=== PATIENT | male | born 1935 | race Caucasian/White ===

== ENCOUNTER 2019-09-15 10:26 | Inpatient (IN) | payer MEDICARE ==
[~2019-09-15] VITALS: Ht 172.7 cm; Wt 96.6 kg
--- NOTE | 2019-09-15 10:35 | NUR ---
PATIENT WAS MSE BY FAITH IN ROOM 05A. PATIENT A & O X3.
--- NOTE | 2019-09-15 10:42 | NUR ---
PATIENT IS MEDICALLY CLEARED BY DR CUEVAS.
--- NOTE | 2019-09-15 11:04 | NUR ---
MED LIST PROVIDED BY PT.
--- NOTE | 2019-09-15 11:05 | NUR ---
SPOKE WITH PATIENT DAUGHTER KESHIA.
--- NOTE | 2019-09-15 11:20 | NUR ---
PT DAUGHTER EMIL CALLED AND PROVIDED PT PMD INFO: DR. CINDY HAYNES,
--- NOTE | 2019-09-15 12:15 | NUR ---
Patient is resting comfortably in bed with eyes closed
--- NOTE | 2019-09-15 13:30 | NUR ---
Pt. admitted to [facility] , under care of Dr. CUNNINGHAM Belongs List completed
[2019-09-15 13:45] VITALS: BP 108/81
--- NOTE | 2019-09-15 13:45 | NUR ---
RECEIVED PT. RESTING IN BED ALERT ORIENTED X4. PT. DENIES PAIN/ DISCOMFORT. PT DENIES SOB/ DIFFICULTY BREATHING. PT. HAS 1-1 SITTER FOR SAFETY 5150 DTS. PT. DENIES SI/ HI. PT. CALM AND COOPERATIVE. SAFETY MEASURES IN PLACE. WILL CONTINUE TO MONITOR.
[2019-09-15] MEDS ORDERED: ZOLPIDEM 5 MG TABLET PO PRN (14:00)
[2019-09-15] MEDS ORDERED: LORAZEPAM 1 MG TABLET PO PRN (14:00)
--- NOTE | 2019-09-15 15:44 | NUR ---
Social Work Note Patient was admitted to the overflow GPS unit today after transfer from [facility]. This social media marketing analyst met with patient and gave him written advisement of his hold for danger to self. His hold will on 09/16/19 at 2015. Patient is alert and oriented x4. He says he lives with his but is uncertain if he wants to return there once he is stable. He overdosed on Venlafaxine and Oxycontin and stated he was tired of listening to his complaining. Patient is currently cooperative and has [id number] for safety. Dr Covarrubias is aware of patient's arrival and will come and see patient tomorrow.
--- NOTE | 2019-09-15 17:49 | NUR ---
PT. STATES HE WANTS TO BE DNR. DR. JIMENES AWARE. CODE STATUS ORDERED
--- NOTE | 2019-09-15 20:00 | NUR ---
Patient received into care, laying in bed, resting comfortably, with 1:1 sitter at bedside. Patient has no complaints of pain/discomfort at this time. All safety and fall precaution measures are in place. Personal items are within reach at all times. Will continue to monitor and assess.
--- NOTE | 2019-09-16 06:30 | NUR ---
Patient slept throughout night with 1:1 sitter at bedside. Patient had no complaints of pain or discomfort and all nursing needs were met promptly, with patient warm, dry and comfortable. All safety and fall precaution measures are in place.
[2019-09-16] MEDS: MULTIVITAMINS,THERAPEUTIC TABLET PO SCH (08:09)
[2019-09-16] MEDS: ASCORBIC ACID 500 MG TABLET PO SCH (08:09)
[2019-09-16 08:33] VITALS: BP 109/81
[2019-09-16] MEDS ORDERED: Medication Not On Formulary EA (Ascorbic Acid (Vitamin C) 500 MG) PO SCH (09:00)
[2019-09-16] MEDS ORDERED: Medication Not On Formulary EA (Multivitamins (Multivitamin) 1 EACH) PO SCH (09:00)
[2019-09-16] MEDS: VENLAFAXINE XR 75 MG TAB.ER.24H PO SCH (09:59)
--- NOTE | 2019-09-16 11:48 | NUR ---
11:30am: This SW attempted to see this patient to complete the psychosocial assessment, but patient was asleep in bed, unable to arouse. Will attempt to complete assessment later today.
[2019-09-16 15:06] VITALS: BP 106/79
--- NOTE | 2019-09-16 15:34 | NUR ---
2:15pm: SW met with the patient and completed the patient's psychosocial assessment.
[2019-09-16 19:37] VITALS: BP 148/82
[2019-09-16] MEDS: QUETIAPINE FUMARATE 25 MG TABLET PO SCH (21:02)
[2019-09-17 04:11] VITALS: BP 119/92
[2019-09-17 06:45] LABS: BASOPHILS % (AUTO) 0.5 % (0.0-2.0); EOSINOPHILS # (AUTO) 0.3 K/uL (0.0-0.7); EOSINOPHILS % (AUTO) 3.6 % (0.0-7.0); HEMATOCRIT 42.3 % (36.7-47.1); HEMOGLOBIN 14.4 g/dL (12.5-16.3); LYMPHOCYTES # (AUTO) 1.6 K/uL (20.0-40.0); LYMPHOCYTES % (AUTO) 18.9 % (20.5-51.5); MEAN CORPUSCULAR HEMOGLOBIN 31.6 uug (23.8-33.4); MEAN CORPUSCULAR HGB CONC 34 g/dL (32.5-36.3); MEAN CORPUSCULAR VOLUME 93.2 fL (73.0-96.2); MONOCYTES # (AUTO) 0.7 K/uL (2.0-10.0); MONOCYTES % (AUTO) 8.4 % (0.0-11.0); NEUTROPHILS # (AUTO) 5.8 K/uL (1.8-8.9); NEUTROPHILS % (AUTO) 68.6 % (38.5-71.5); PLATELET COUNT (AUTO) 231 K/uL (152-348); RED BLOOD CELL COUNT(AUTO) 4.54 MIL/uL (4.06-5.63); WHITE BLOOD COUNT (AUTO) 8.5 K/uL (3.6-10.2)
[2019-09-17 06:54] LABS: THYROID STIMULATING HORMONE 1.892 mIU/mL (0.358-3.740)
[2019-09-17 07:22] LABS: BILIRUBIN,TOTAL 0.4 mg/dL (0.2-1.0); CREATININE 0.9 mg/dL (0.6-1.3); MAGNESIUM 2.1 mg/dL (1.8-2.4); PHOSPHOROUS 3.1 mg/dL (2.5-4.9); TOTAL PROTEIN, SERUM 6.5 g/dL (6.4-8.2)
[2019-09-17] MEDS: MULTIVITAMINS,THERAPEUTIC TABLET PO SCH (08:08)
[2019-09-17] MEDS: VENLAFAXINE XR 75 MG TAB.ER.24H PO SCH (08:08)
[2019-09-17] MEDS: ASCORBIC ACID 500 MG TABLET PO SCH (08:08)
--- NOTE | 2019-09-17 11:28 | NUR ---
Received patient this am. Awake, alert and oriented. Patient denies SI at this time , but states " I have been thinking about it for awhile, like a few months. " Patient denies being depressed but states " I am just tired of my ". No behavioral issues or acute distress noted. Monitoring closely for SI and safety. Sitter at bedside . Ambulated patient around the unit. Gait steady. Encouraging patient to have meaningful conversations at this time.
[2019-09-17 16:10] VITALS: BP 146/98
[2019-09-17] MEDS ORDERED: ACETAMINOPHEN 325 MG TABLET PO PRN (20:00)
[2019-09-17] MEDS: QUETIAPINE FUMARATE 25 MG TABLET PO SCH (20:18)
[2019-09-17 20:30] VITALS: BP 139/86
--- NOTE | 2019-09-18 07:01 | NUR ---
Received Pt sitting up in bed awake with 1:1 sitter present. A+Ox3, Pt guarded on approach. Pt gives limited disclosure and minimizes the events surrounding the reason for admission, states it "is just a big misunderstanding." Pt denies any current thoughts of SI and verbally contracts for safety. Compliant with HS medications, cooperative with staff direction. Exhibits flat affect and poor eye contact. Denies pain, temp elevated at 99.8, Tylenol 650mg administered with good effect, re check was 98.4, all other VS stable. Slept 8 hours.
[2019-09-18 07:30] VITALS: BP 128/80
[2019-09-18] MEDS: MULTIVITAMINS,THERAPEUTIC TABLET PO SCH (08:10)
[2019-09-18] MEDS: VENLAFAXINE XR 75 MG TAB.ER.24H PO SCH (08:10)
[2019-09-18] MEDS: ASCORBIC ACID 500 MG TABLET PO SCH (08:10)
--- NOTE | 2019-09-18 13:50 | NUR ---
GPS: received patient AOx2-3,asleep on bed, patient compliant with medication, had good breakfast and lunch and took shower, patient calm and cooperative in his room, denies SI and HI
[2019-09-18 15:00] VITALS: BP 128/89
[2019-09-18 20:14] VITALS: BP 130/78
[2019-09-18] MEDS: QUETIAPINE FUMARATE 25 MG TABLET PO SCH (21:13)
--- NOTE | 2019-09-19 06:39 | NUR ---
Remains somewhat isolative and withdrawn, but calm and pleasant. Denies any current thoughts of SI and verbally contracts for safety. Reports he "is not quite ready" to be discharged home yet, but was not willing to talk about why, Pt continues to be guarded. Denied pain, VS stable. Slept 7 hours.
--- NOTE | 2019-09-19 07:30 | NUR ---
GPS: received patient awake on bed, in good mood, patient seen smiling , denies SI and HI, wathing TV in his room, will continue monitor
[2019-09-19 07:31] VITALS: BP 130/16
[2019-09-19] MEDS: VENLAFAXINE XR 75 MG TAB.ER.24H PO SCH (08:19)
[2019-09-19] MEDS: MULTIVITAMINS,THERAPEUTIC TABLET PO SCH (08:19)
[2019-09-19] MEDS: ASCORBIC ACID 500 MG TABLET PO SCH (08:19)
--- NOTE | 2019-09-19 14:36 | NUR ---
Social Work Individual Therapy: horse stud worker met with patient for brief counseling and assessed for level of suicidality. horse stud worker assessed for suicidal thoughts, patient denied suicidal thoughts. Patient expressed that he is not SI and that she has never been SI. However, patient stated that he was only SI once and that was the reason to why he was brought to the hospital. horse stud worker will provided resources for patient upon discharge. horse stud worker provided comfort and actively listened. horse stud worker will continue to follow up.
--- NOTE | 2019-09-19 14:41 | NUR ---
Social Work Initial Discharge Plan: Patient will return back home with his or this parts data writer will look into a SNF for the patient.
--- NOTE | 2019-09-19 14:45 | NUR ---
Social Work Firearms Report: Second Rigger completed and submitted a [employer] firearms report for 5250 grave disability certification. A copy of report has been placed in patient chart.
[2019-09-19 20:00] VITALS: BP 126/83
[2019-09-19] MEDS: QUETIAPINE FUMARATE 25 MG TABLET PO SCH (20:25)
[2019-09-20 07:30] VITALS: BP_SYST 116; BP_SYST 150; BP_DIAS 75; BP_DIAS 79
--- NOTE | 2019-09-20 07:30 | NUR ---
RECEIVED PATIENT IN BED RESTING WITH NO C/O PAIN AND NO SOB NOTED AT THIS TIME. PATIENT IS CALM AND COOPERATIVE. WILL CONTINUE TO MONITOR. KEPT CLEAN AND DRY AT ALL TIMES. SAFETY AND COMFORT PROVIDED AT ALL TIMES. WILL CONTINUE TO MONITOR.
[2019-09-20] MEDS: VENLAFAXINE XR 75 MG TAB.ER.24H PO SCH (08:23)
[2019-09-20] MEDS: ASCORBIC ACID 500 MG TABLET PO SCH (08:23)
[2019-09-20] MEDS: MULTIVITAMINS,THERAPEUTIC TABLET PO SCH (08:23)
--- NOTE | 2019-09-20 09:00 | NUR ---
Social Work PC Hearing Notification: color worker contacted patient's Daina, ([phone]) and notified patients probable cause of hearing today.
--- NOTE | 2019-09-20 15:12 | NUR ---
Social Work Family Contact: pediatric social worker spoke with patient's daughter Keyonna ([phone]) and explained to her treatment plan and discharge plan. Per Keyonna, she stated that her mother Daina is often forgetful and to keep Keyonna updated on her father's status.
--- NOTE | 2019-09-20 15:12 | NUR ---
Social Work Individual Therapy Note: railway traction line worker met with patient to discuss discharge plan. Per patient, he stated that he would want to go back home to his . This instructional writer offered if patient would like to go to a detention and patient refused. Patient stated that "he is committed to taking care of his ".
[2019-09-20 16:00] VITALS: BP 125/78
--- NOTE | 2019-09-20 20:10 | NUR ---
RECEIVED PATIENT IN THE DAY ROOM WATCHING TV AND CONVERSING WITH ROOMMATE. HE IS NOTED A/O X 3 ABLE TO AMBULATE WITH STEADY GAIT AND ABLE TO VERBALIZED FEELINGS. PATIENT NOTED CALM AND PLEASANT UPON APPROACHED. HE DENIES SI/HI/VH/AH. HE STATED, "I FEEL FINE, MUCH BETTER". PATIENT IS ABLE TO CFS. PT IS REASSURED FOR HIS SAFETY. V/S STABLE AT THIS TIME. SAFETY FALL AND SI PRECAUTION IN PLACE/ WILL CONTINUE TO MONITOR.
[2019-09-20] MEDS: QUETIAPINE FUMARATE 25 MG TABLET PO SCH (20:56)
[2019-09-20 22:00] VITALS: BP 153/103
[2019-09-21 08:00] VITALS: BP 139/65
[2019-09-21 08:01] VITALS: BP 139/65
[2019-09-21] MEDS: ASCORBIC ACID 500 MG TABLET PO SCH (08:21)
[2019-09-21] MEDS: VENLAFAXINE XR 75 MG TAB.ER.24H PO SCH (08:21)
[2019-09-21] MEDS: MULTIVITAMINS,THERAPEUTIC TABLET PO SCH (08:21)
--- NOTE | 2019-09-21 10:10 | NUR ---
Social Work Family Contact: tray service worker contacted patient's family member Hawk ([phone]) who stated that he will pick patient up at 3:30PM Thursday.
[2019-09-21 16:00] VITALS: BP 130/71
--- NOTE | 2019-09-21 20:03 | NUR ---
RECEIVED PATIENT IN THE DAY ROOM. HE IS NOTED A/O X 4. CALM AND PLEASANT UPON APPROACHED. GOAL ORIENTED. PT DENIED SI. HE IS ABLE TO CFS. SAFETY AND FALL PRECAUTION IN PLACE. PT IS REASSURED FOR HIS SAFETY. WILL CONTINUE TO MONITOR.
[2019-09-21 20:40] VITALS: BP 151/90
[2019-09-21] MEDS: QUETIAPINE FUMARATE 25 MG TABLET PO SCH (21:00)
[2019-09-22 07:30] VITALS: BP 140/81
[2019-09-22] MEDS: MULTIVITAMINS,THERAPEUTIC TABLET PO SCH (08:34)
[2019-09-22] MEDS: VENLAFAXINE XR 75 MG TAB.ER.24H PO SCH (08:34)
[2019-09-22] MEDS: ASCORBIC ACID 500 MG TABLET PO SCH (08:34)
--- NOTE | 2019-09-22 09:03 | NUR ---
Social Work Individual Therapy: church worker met with patient for brief counseling and assessed for level of suicidality. church worker assessed for suicidal thoughts, patient denied suicidal thoughts. Patient expressed that he is not SI and that she has never been SI. However, patient stated that he was only SI because he was "stressed". Per patient, he stated that this will "never happen again". church worker safety planned with patient and gave patient resources. church worker provided emotional support and guidance.
--- NOTE | 2019-09-22 14:13 | NUR ---
Social Work Coordination of Care: direct support worker spoke with Gracie from [facility]; ([phone]) and stated that a nurse will evaluate patient on 09/24/19. This radio script writer sent in clinicals.
[2019-09-22 16:07] VITALS: BP 108/84
--- NOTE | 2019-09-22 16:08 | NUR ---
Social Work Substance Abuse Intervention: Patient was provided brief substance abuse intervention and was referred to [facility] ([phone]) and was also referred to [facility] ([phone]).
[2019-09-22 20:30] VITALS: BP 132/95
[2019-09-22] MEDS: QUETIAPINE FUMARATE 25 MG TABLET PO SCH (20:57)
--- NOTE | 2019-09-22 22:48 | NUR ---
GPS/ Pt. received pt up in chair in activity room, able to verbally respond and make needs known. Pt denied pain with no c/o discomfort. Pt aware of thought process and when spoke to said he known when to take medications. Pt cooperative with routine medication and frequent visit in place. 15 mins face to face continue.
[2019-09-23 07:52] VITALS: BP 128/74
--- NOTE | 2019-09-23 08:00 | NUR ---
Patient in bed, awake and verbally responsive. No signs of distress noted, No SOB. No complain of Pain or discomfort. Patient is calm, No aggressive behavior noted. No SI/HI noted. Will continue to monitor.
--- NOTE | 2019-09-23 09:02 | NUR ---
Social Work Discharge Note: Patient will be discharged back home [address] [place] [address]; ([phone]). Patients Daina ([phone]) is aware and agreeable with discharge. Patients friend will coal picker patient at 3:30PM. Patient is aware and agreeable with discharge plans. Upon discharge, patient appear to be calm, cooperative and happy to be going home. Patient denies suicidal and homicidal ideation. Patient will follow up with Dr. Arteaga (group controller) [place] [address]; ([phone]) on September 21 at 1PM and will follow-up with Dr. Stanley (psychiatrist) located at [facility] ([phone]) [address] [place] [address] via virtual meeting (due to COVID-) on October 02 at 10AM and will discuss smoking cessation and address substance abuse dependency. Patient will receive home health services through, this securities underwriter, spoke with Gracie gallo from [facility]; ([phone]) and stated that a nurse will evaluate patient on 09/24/19. This securities underwriter sent in clinicals. Patient was provided with mental health resources: [facility] ;([phone]), [facility]; ([phone]), [facility]; ([phone]), National Suicide Prevention Lifeline; ( ). Patient was provided with substance abuse referrals [facility] ) and was also referred to [facility] ([phone]). Patient presents with euthymic mood and congruent affect.
[2019-09-23] MEDS: ASCORBIC ACID 500 MG TABLET PO SCH (09:24)
[2019-09-23] MEDS: VENLAFAXINE XR 75 MG TAB.ER.24H PO SCH (09:24)
[2019-09-23] MEDS: MULTIVITAMINS,THERAPEUTIC TABLET PO SCH (09:24)
--- NOTE | 2019-09-23 15:03 | NUR ---
Patient discharged today. No significant nutritional problems anticipated Addendum: 09/23/19 at [address] Amended: Links added.
--- NOTE | 2019-09-23 15:40 | NUR ---
Patient is awake and verbally responsive. No signs of distress noted. No SOB. No complain of pain or discomfort. Patient with order to Discharge Home today, discharge Instructions given and verbalized Understanding. All belongings was signed and sent with Patient. Removed Wrist band. Patient was picked up by friends via Private car in stable condition.
== END 2019-09-23 15:40 | disposition home or self-care (01) | DRG 885 ==
LOC: ER 10:26 → GPSOV3 13:07 → GPS 09-19 10:12
PROVIDERS: ADMIT Psychiatry & Neurology Psychiatry; ATTEND Internal Medicine
DX: F33.3 Major depressive disorder, recurrent, severe with psychotic symptoms (principal); E44.1 Mild protein-calorie malnutrition; F23 Brief psychotic disorder; T40.2X2D Poisoning by other opioids, intentional self-harm, subsequent encounter; Z95.0 Presence of cardiac pacemaker; E86.0 Dehydration; Z66 Do not resuscitate; Z79.899 Other long term (current) drug therapy; E88.09 Other disorders of plasma-protein metabolism, not elsewhere classified; R73.9 Hyperglycemia, unspecified; M45.9 Ankylosing spondylitis of unspecified sites in spine; Z68.32 Body mass index [BMI] 32.0-32.9, adult
CPT/HCPCS: 36415; 83735; 84100; 84443; 85025; A4663